=== PATIENT | female | born 1960 | race Caucasian/White ===

== ENCOUNTER → 2018-10-14 | Outpatient (CLI) | payer OTHER | END | disposition home or self-care (01) | LOC: HKI 13:36 | DX: M17.10 Unilateral primary osteoarthritis, unspecified knee (principal); M25.569 Pain in unspecified knee | CPT/HCPCS: 77073 ==

== ENCOUNTER 2019-01-14 10:04 | Inpatient (IN) | payer OTHER ==
[2019-01-13] MEDS: TRANEXAMIC ACID 1GM/100ML(PMX) 100 ML INTRA-OP X1 IVPB (11:30)
[2019-01-14] MEDS: ONDANSETRON 4 MG INJ IV ×2 (11:25→22:38)
[2019-01-14] MEDS: ACETAMINOPHEN 500 MG TAB PO ×2 (11:25→22:00)
[2019-01-14] MEDS: LANSOPRAZOLE 30 MG CAP PO (11:26)
[2019-01-14] MEDS: GABAPENTIN 300 MG CAP PO ×2 (11:26→20:51)
[2019-01-14] MEDS: LACTATED RINGER'S 1,000 ML IV ×2 (11:30→16:48)
[2019-01-14] MEDS ORDERED: CELECOXIB 200 MG CAP PO (11:30)
[2019-01-14] MEDS: CELECOXIB 200 MG CAP PO (11:50)
[2019-01-14] MEDS: TRANEXAMIC ACID 1GM/100ML(PMX) 100 ML PRE-OP X1 IVPB (12:30)
[2019-01-14] MEDS ORDERED: FENTAnyl 50 MCG/ML VIAL (12:57)
[2019-01-14] MEDS ORDERED: morphine SULFATE/PF (10 MG/10 ML) INJ (12:57)
[2019-01-14] MEDS ORDERED: MIDAZOLAM 1 MG/ML 2 ML INJ (12:58)
[2019-01-14] MEDS ORDERED: SEVOFLURANE 15 MIN (13:00)
[2019-01-14] MEDS ORDERED: ONDANSETRON 4 MG INJ (16:36)
[2019-01-14] MEDS ORDERED: PROPOFOL 20 ML (16:37)
[2019-01-14] MEDS ORDERED: ROCURONIUM 50 MG INJ (16:37)
[2019-01-14] MEDS ORDERED: CEFAZOLIN 1 GM INJ (16:37)
[2019-01-14] MEDS ORDERED: LIDOCAINE 2% (SDV) 5 ML INJ (16:37)
[2019-01-14] MEDS ORDERED: oxyCODONE 5 MG TAB PO ×2 (17:00)
[2019-01-14] MEDS ORDERED: FENTAnyl 50 MCG/ML VIAL IV (17:00)
[2019-01-14] MEDS ORDERED: BETHANECHOL 25 MG TAB PO (17:00)
[2019-01-14] MEDS ORDERED: SENNA/DOCUSATE NA (8.6MG/50MG) TAB PO (17:00)
[2019-01-14] MEDS ORDERED: NALOXONE (0.4 MG/ML) INJ IV ×2 (17:00→17:30)
[2019-01-14] MEDS ORDERED: DIPHENHYDRAMINE 50 MG INJ IV (17:00)
[2019-01-14] MEDS ORDERED: MAGNESIUM HYDROXIDE 30ML CUP PO (17:00)
[2019-01-14] MEDS ORDERED: HYDROmorphONE 1 MG/5 ML IV SYRINGE IV ×2 (17:00)
[2019-01-14] MEDS ORDERED: METOCLOPRAMIDE 10 MG INJ IV (17:00)
[2019-01-14] MEDS ORDERED: ONDANSETRON 4 MG INJ IV (17:00)
[2019-01-14] MEDS ORDERED: MEPERIDINE 25 MG INJ IV (17:00)
[2019-01-14] MEDS ORDERED: HYDROmorphONE 1 MG/ML SYG IV (17:00)
[2019-01-14] MEDS ORDERED: NA PHOSPHATE/BIPHOS 133 ML ENEMA PR (17:00)
[2019-01-14] MEDS ORDERED: NACL 0.9% 3 ML SYG IV (17:00)
[2019-01-14] MEDS ORDERED: BISACODYL 10 MG SUPP PR (17:00)
[2019-01-14] MEDS: DOCUSATE SODIUM 100 MG CAP PO (17:24)
[2019-01-15] MEDS: DIPHENHYDRAMINE 50 MG INJ IV (00:49)
[2019-01-15 05:11] LABS: ADD MAN DIFF? NO
[2019-01-15] MEDS: LACTATED RINGER'S 1,000 ML IV ×2 (05:18→07:43)
[2019-01-15 05:22] LABS: WHITE BLOOD COUNT 9.9 10^3/ul (4.8-10.8)
[2019-01-15 05:22] LABS: BASOPHIL # 0.1 10^3/ul (0.0-0.1); BASOPHILS % 0.5 % (0.0-2.0); EOSINOPHILS # 0.1 10^3/ul (0.0-0.5); HEMATOCRIT 32.3 % (37.0-47.0); HEMOGLOBIN 10.4 g/dl (12.0-16.0); LYMPHOCYTES # 1.7 10^3/ul (0.8-2.9); LYMPHOCYTES % 17.5 % (15.0-51.0); MEAN CORPUSCULAR HEMOGLOBIN 26.5 pg (29.0-33.0); MEAN CORPUSCULAR HGB CONC 32.2 g/dl (32.0-37.0); MEAN CORPUSCULAR VOLUME 82.2 fl (82.0-101.0); MEAN PLATELET VOLUME 12.1 fl (7.4-10.4); MONOCYTE # 0.9 10^3/ul (0.3-0.9); MONOCYTES % 8.9 % (0.0-11.0); NEUTROPHIL # 7.1 10^3/ul (1.6-7.5); NEUTROPHILS % 71.6 % (39.0-77.0); PLATELET COUNT 189 10^3/UL (140-415); RED BLOOD COUNT 3.93 10^6/ul (4.20-5.40); RED CELL DISTRIBUTION WIDTH 15.2 % (11.5-14.5)
[2019-01-15 05:35] LABS: ANION GAP 4 (5-13); BLOOD UREA NITROGEN 7 mg/dl (7-20); CALCIUM 8.1 mg/dl (8.4-10.2); CARBON DIOXIDE 29 mmol/L (21-31); CHLORIDE 102 mmol/L (97-110); Estimated GFR > 60 mL/min (>60); GLUCOSE 99 mg/dl (70-220); POTASSIUM 4.7 mmol/L (3.5-5.1); SODIUM 135 mmol/L (135-144)
[2019-01-15] MEDS: ACETAMINOPHEN 500 MG TAB PO ×3 (06:00→21:27)
[2019-01-15] MEDS: ASPIRIN (EC) 81 MG TAB PO ×2 (08:35→21:27)
[2019-01-15] MEDS: oxyCODONE 5 MG TAB PO ×3 (08:35→18:42)
[2019-01-15] MEDS: DOCUSATE SODIUM 100 MG CAP PO ×2 (08:35→21:28)
[2019-01-15] MEDS ORDERED: AMLODIPINE 5 MG TAB PO (09:00)
[2019-01-15] MEDS ORDERED: ONDANSETRON 4 MG INJ IV (17:00)
[2019-01-15] MEDS: GABAPENTIN 300 MG CAP PO (21:27)
[2019-01-15] MEDS: AMLODIPINE 5 MG TAB PO (21:27)
[2019-01-16 05:05] LABS: ADD MAN DIFF? NO
[2019-01-16 05:10] LABS: BASOPHILS % 0.3 % (0.0-2.0); EOSINOPHILS # 0.1 10^3/ul (0.0-0.5); HEMATOCRIT 32.6 % (37.0-47.0); HEMOGLOBIN 10.8 g/dl (12.0-16.0); LYMPHOCYTES # 1.8 10^3/ul (0.8-2.9); LYMPHOCYTES % 16.7 % (15.0-51.0); MEAN CORPUSCULAR HEMOGLOBIN 26.6 pg (29.0-33.0); MEAN CORPUSCULAR HGB CONC 33.1 g/dl (32.0-37.0); MEAN CORPUSCULAR VOLUME 80.3 fl (82.0-101.0); MEAN PLATELET VOLUME 11.9 fl (7.4-10.4); MONOCYTE # 1.1 10^3/ul (0.3-0.9); MONOCYTES % 10.5 % (0.0-11.0); NEUTROPHIL # 7.4 10^3/ul (1.6-7.5); NEUTROPHILS % 70.8 % (39.0-77.0); PLATELET COUNT 199 10^3/UL (140-415); RED BLOOD COUNT 4.06 10^6/ul (4.20-5.40); RED CELL DISTRIBUTION WIDTH 14.9 % (11.5-14.5)
[2019-01-16 05:10] LABS: WHITE BLOOD COUNT 10.5 10^3/ul (4.8-10.8)
[2019-01-16 05:25] LABS: ANION GAP 6 (5-13); BLOOD UREA NITROGEN 7 mg/dl (7-20); CALCIUM 8.4 mg/dl (8.4-10.2); CARBON DIOXIDE 28 mmol/L (21-31); CHLORIDE 98 mmol/L (97-110); CREATININE 0.59 mg/dl (0.44-1.00); Estimated GFR > 60 mL/min (>60); GLUCOSE 121 mg/dl (70-220); POTASSIUM 3.9 mmol/L (3.5-5.1); SODIUM 132 mmol/L (135-144)
[2019-01-16] MEDS: ACETAMINOPHEN 500 MG TAB PO ×2 (06:13→14:00)
[2019-01-16] MEDS: PANTOPRAZOLE (EC) 40 MG TAB PO (06:14)
[2019-01-16] MEDS: ASPIRIN (EC) 81 MG TAB PO (08:59)
[2019-01-16] MEDS: DOCUSATE SODIUM 100 MG CAP PO (08:59)
[2019-01-16 13:14] LABS: ADD UMIC YES; UR ASCORBIC ACID NEGATIVE (NEGATIVE); UR BACTERIA FEW /HPF (NONE SEEN); UR BILIRUBIN (Dip) NEGATIVE (NEGATIVE); UR BLOOD (Dip) 2+ mg/dL (NEGATIVE); UR CLARITY CLEAR (CLEAR); UR COLOR YELLOW (YELLOW); UR GLUCOSE (Dip) NEGATIVE (NEGATIVE); UR KETONES (Dip) NEGATIVE (NEGATIVE); UR LEUKOCYTE ESTERASE (Dip) 1+ Leu/ul (NEGATIVE); UR NITRITE (Dip) NEGATIVE (NEGATIVE); UR RBC 2 /HPF (0-5); UR SPECIFIC GRAVITY (Dip) 1.005 (1.003-1.030); UR TOTAL PROTEIN (Dip) NEGATIVE (NEGATIVE); UR UROBILINOGEN (Dip) NEGATIVE (NEGATIVE); UR WBC 7 /HPF (0-5)
[2019-01-16] MEDS: oxyCODONE 5 MG TAB PO (14:01)
== END 2019-01-16 14:55 | disposition home health service (06) | DRG 470 ==
LOC: REC 10:04 → MS1 18:25
PROC: 0SRC0J9 Replacement of Right Knee Joint with Synthetic Substitute, Cemented, Open Approach (ICD-10-PCS; principal; 2019-01-14 12:00)
PROC: 0SBC0ZZ Excision of Right Knee Joint, Open Approach (ICD-10-PCS; 2019-01-14 12:00)
DX: M06.261 Rheumatoid bursitis, right knee (principal); I10 Essential (primary) hypertension; M81.0 Age-related osteoporosis without current pathological fracture
CPT/HCPCS: 71045; 73560; 80048; 81001; 85025; 86850; 86900; 86901; 87081; 87086; 88304; 88311; 97110; 97116; 97161; 97165; 97530; 97535